=== PATIENT | female | born 1975 | race Caucasian/White ===

== ENCOUNTER 2018-01-31 13:54 | Emergency (ER) | payer BC, OTHER ==
[~2018-01-31] VITALS: Ht 165.1 cm; Wt 104.3 kg
[~2018-01-31 13:54] MED LIST: ALBUTEROL SULF8.5 GM INH; ANASPAZ0.125 MG PO; AYGESTIN5 MG PO; BACTRIM DS TAB1 EACH PO; CLARITIN10 MG PO; CRESTOR20 MG PO; FLOVENT DISKU100 MCG INH; FLUOXETINE HCL40 MG PO; GEMFIBROZIL600 MG PO; GLIPIZIDE XL10 MG PO; IBUPROFEN400 MG PO; JANUVIA100 MG PO; LANTUS100 UNITS/ SUB-Q; LISINOPRIL2.5 MG PO; NORCO 5-325 TA1 EACH PO; OMEPRAZOLE20 MG PO; PERCOCET 5-3251 EACH PO; SINGULAIR10 MG PO; VIVELLE-DOT1 EAC1 TD
[2018-01-31] MEDS ORDERED: HUMULIN 70100 UNIT/3 SUB-Q (14:12)
== END 2018-01-31 17:45 | disposition home or self-care (01) ==
LOC: ED 13:54
DX: R51 Headache (principal); E11.9 Type 2 diabetes mellitus without complications; I10 Essential (primary) hypertension; Z88.0 Allergy status to penicillin; Z91.013 Allergy to seafood; Z88.8 Allergy status to other drugs, medicaments and biological substances; Z79.4 Long term (current) use of insulin; Z79.899 Other long term (current) drug therapy
CPT/HCPCS: 70450; 99284

== ENCOUNTER 2018-09-29 08:51 | Emergency (ER) | payer BC, OTHER ==
[~2018-09-29] VITALS: Ht 165.1 cm; Wt 104.3 kg
[~2018-09-29 08:51] MED LIST changes: +HUMULIN 70100 UNIT/3 SUB-Q
[2018-09-29] MEDS ORDERED: FLUCONAZOLE150 MG PO (09:12)
[2018-09-29] MEDS ORDERED: ESTRADIOL1 EACH TD (09:13)
[2018-09-29] MEDS ORDERED: PREDNISONE20 MG PO (10:46)
== END 2018-09-29 11:13 | disposition home or self-care (01) ==
LOC: ED 08:51
DX: J02.9 Acute pharyngitis, unspecified (principal); K12.2 Cellulitis and abscess of mouth; E11.9 Type 2 diabetes mellitus without complications; J45.909 Unspecified asthma, uncomplicated; I10 Essential (primary) hypertension; Z88.0 Allergy status to penicillin; Z91.013 Allergy to seafood; Z91.048 Other nonmedicinal substance allergy status; Z88.8 Allergy status to other drugs, medicaments and biological substances; Z79.899 Other long term (current) drug therapy; Z79.4 Long term (current) use of insulin
CPT/HCPCS: 99283

== ENCOUNTER 2022-04-30 08:15 | Day surgery (SDC) | payer BC, OTHER ==
[~2022-04-30] VITALS: Ht 165.1 cm; Wt 83.6 kg
[~2022-04-30 08:15] MED LIST changes: +CLIMARA1 EACH TD; +CRESTOR10 MG PO; +ESTRADIOL1 EACH TD; +FLUCONAZOLE150 MG PO; +PREDNISONE20 MG PO; +PROVERA2.5 MG PO; +ROPINIROLE HCL5 MG PO; +ZESTRIL5 MG PO
[2022-04-30] MEDS ORDERED: MULTI VITAMIN1 EACH PO (08:39)
--- NOTE | 2022-04-30 12:11 | NUR ---
04/30/22 1211 Gloria Davison 1201-PATIENT ARRIVED TO PACU ON 6L MASK NONAROUSABLE ORAL AIRWAY IN PLACE RR EVEN. IVF INFUSING. SR. GLUCOSE 102. 1205-PATIENT REACTIVE TO VERBAL STIMULI OPENING EYES ORAL AIRWAY REMOVED. NODS HEAD NO TO PAIN OR NAUSEA. PATIENT GIVES THUMBS UP.PATIENT VERY DROWSY DOZES BACK TO SLEEP. 1210-NO DRAINAGE TO VIRGILIO AREA. VIRGILIO PAD PLACED. DR. MATTHEW AT BEDSIDE TALKING TO PATIENT. PATIENT CLOES EYES. PLACED ON RA RR EVEN 100%
[2022-04-30] MEDS ORDERED: HYDROCODON-ACE1 EA10 PO (12:20)
--- NOTE | 2022-04-30 12:57 | NUR ---
1245: PT BACK TO DS RM 3 VIA STRETCHER FROM PACU WITH EYES OPEN. PT FOLLOWS COMMANDS APPROPRIATELY. RATES PAIN 3/10 "CRAMPY" AND IS EDUCATED ABOUT WHAT TO EXPECT. TOLERATES WATER WITH NO NAUSEA, PROVIDED PUDDING AND CRACKERS. CALL LIGHT WITHIN REACH, ENCOURAGED TO USE WITH ANY NEEDS.
--- NOTE | 2022-04-30 14:01 | NUR ---
1315: PT WAKES WHEN THIS RN ENTERS THE ROOM. DESIRES TO DC. DANGLES AT THE BEDSIDE, LINA WELL. DENIES DIZZINESS AND SOB. DRESSES INDEPENDENTLY 1330: DC INSTRUCTIONS PROVIDED AND DISCUSSED ORDERED. PT DENIES QUESTIONS AND CONCERNS AT THIS TIME. SL REMOVED WITH CATH TIP INTACT AND PRESSURE APPLIED TO SITE, WNL. 1334: WHEELED OFF OF UNIT BY THIS RN. TRANSFERS INTO VEHICLE INDEPENDENTLY AND APPROPRIATELY. NO PHYSICAL S/S OF DISTRESS AT THIS TIME
--- NOTE | 2022-05-02 08:19 | OR ---
[facility] [address] [place], [place] [address] Signed DATE OF OPERATION: 04/30/2022 SURGEON: Amanda Mccullough MD PREOPERATIVE DIAGNOSIS: Postmenopausal bleeding. POSTOPERATIVE DIAGNOSIS: Postmenopausal bleeding, endometrial polyps. ANESTHESIA: MAC. ESTIMATED BLOOD LOSS: Minimal. DRAINS: None. INDICATIONS AND FINDINGS: The patient is a 46-year-old female who has been on hormone replacement treatment for the last 10 years. Her regimen was recently changed and since then she has been having abnormal bleeding. The bleeding can be heavy at times. Endometrial thickness is quite thick. Endometrial biopsy was not successful in the office. At the time of surgery, exam under anesthesia revealed a normal-size uterus. She has no adnexa as these have been previously removed for benign indications. The uterus sounded to 8 cm. On evaluation of the cavity, there were multiple polyps seen. DESCRIPTION OF PROCEDURE: The patient was prepped and draped in the dorsal lithotomy position. A weighted speculum was placed. The anterior lip of the cervix was visualized and grasped with a single-tooth tenaculum. The cavity was sounded to 8 cm. The endocervical canal was then easily dilated to a #8 dilator. MyoSure device was then placed. After evaluation of the cavity, the decision was made to use the MyoSure Lite. This was introduced and the multiple polyps were removed without difficulty. Following this, the tenaculum was removed from the cervix. There was no evidence of any active bleeding. The speculum was removed and the patient was taken to the recovery room in good condition. All sponge and needle counts were correct. Electronically Signed By: AMANDA MCCULLOUGH MD 05/02/22 0819 PATIENT NAME: VIVI BELTRAN OPERATIVE REPORT DATE OF : 75 REPORT #: [id number] PHYSICIAN: AMANDA MCCULLOUGH MD PCP: [facility] REPORT IS CONFIDENTIAL AND NOT TO BE RELEASED WITHOUT AUTHORIZATION [address] [address] Signed Amanda Mccullough MD PJW/MODL /[id number] cc: Fadi Copies: ~ Electronically Signed By: AMANDA MCCULLOUGH MD 05/02/22 0819 PATIENT NAME: VIVI BELTRAN OPERATIVE REPORT DATE OF : 75 REPORT #: [id number] PHYSICIAN: AMANDA MCCULLOUGH MD PCP: [facility] REPORT IS CONFIDENTIAL AND NOT TO BE RELEASED WITHOUT AUTHORIZATION
== END 2022-04-30 13:35 | disposition home or self-care (01) ==
LOC: DS 08:15
PROVIDERS: ATTEND Obstetrics & Gynecology
PROC: 0UB98ZX Excision of Uterus, Via Natural or Artificial Opening Endoscopic, Diagnostic (ICD-10-PCS; principal; 2022-04-30 12:45)
DX: N84.0 Polyp of corpus uteri (principal); N95.0 Postmenopausal bleeding; J45.909 Unspecified asthma, uncomplicated; I10 Essential (primary) hypertension; E11.69 Type 2 diabetes mellitus with other specified complication; K21.9 Gastro-esophageal reflux disease without esophagitis; E66.8 Other obesity; Z68.30 Body mass index [BMI] 30.0-30.9, adult; Z79.3 Long term (current) use of hormonal contraceptives; Z88.0 Allergy status to penicillin; Z88.8 Allergy status to other drugs, medicaments and biological substances; Z91.013 Allergy to seafood
CPT/HCPCS: 00952; J0131; J1100; J1644; J1885; J2001; J2250; J2405; J2704; J2765; J3010; J7121

== ENCOUNTER 2023-04-29 05:53 | Inpatient (IN) | payer BC, OTHER ==
[2023-04-20 15:19] VITALS: BP 112/68
[2023-04-29] VITALS (7 sets, daily range): BP systolic 107–139; BP diastolic 43–81
[~2023-04-29] VITALS: Ht 165.1 cm; Wt 84.1 kg
--- NOTE | ~2023-04-29 | OR ---
[facility] [address], [place] [address] Draft DATE OF OPERATION: 04/29/2023 SURGEON: Amanda Mccullough MD LMFT: Antoinette Cesar MD PREOPERATIVE DIAGNOSES: Uterovaginal prolapse and stress incontinence. POSTOPERATIVE DIAGNOSES: Uterovaginal prolapse and stress incontinence. PROCEDURES: Laparoscopically-assisted vaginal hysterectomy, right salpingectomy, cystocele and rectocele repair, sacrospinous cuff suspension, bilateral sling procedure and cystoscopy. ANESTHESIA: General with spinal. ESTIMATED BLOOD LOSS: 100 mL. DRAINS: Gaytan catheter. PACKS: Vaginal. INDICATIONS AND FINDINGS: The patient is a 47-year-old female, who has been having increasing issues with stress incontinence as well as vaginal pressure and bulging. She has undergone prior bilateral salpingo-oophorectomy for one ovary with a torsion and the other with a dermoid. Her uterus remained and she has had persistent abnormal postmenopausal bleeding despite multiple changes in her regimen. She did not tolerate being off hormones and her last hysteroscopy was suggestive of adenomyosis. Because of this, surgical and evaluation and treatment was recommended. At the time of surgery and at the time of the exam under anesthesia revealed the cervix to present within 2 cm of the introitus. There was a grade 2 cystocele and a grade 2 rectocele. On laparoscopy, the uterus and cervix PATIENT NAME: VIVI BELTRAN OPERATIVE REPORT DATE OF : 75 REPORT #: [id number] PHYSICIAN: AMANDA MCCULLOUGH MD PCP: [facility] REPORT IS CONFIDENTIAL AND NOT TO BE RELEASED WITHOUT AUTHORIZATION [facility] [address], [place] [address] Draft appeared normal. There was remaining right tube, which was excised. Both ovaries were previously removed. DESCRIPTION OF PROCEDURE: The patient was prepped and draped in the dorsal lithotomy position. A weighted speculum was placed. The anterior lip of the cervix was visualized and grasped with a single-tooth tenaculum. The cavity was then sounded and the endocervical canal was dilated. The VCare cannula was inserted and the balloon inflated at the fundus. The tenaculum and speculum removed and the cup was fitted over the cervix and a locking cap fitted into place. Attention was then directed above. The infraumbilical area was injected with 0.5% Marcaine plain. An incision was made with a knife and each layer serially elevated, incised until the fascia was eventually identified and entered. The patient was quite deep. Stay sutures of 0 Vicryl were placed. The peritoneum was opened bluntly and a Geo cannula was placed. This was replaced by the bariatric Geo given the depth of the abdominal wall. The abdomen was then inflated with carbon dioxide gas. The abdomen was appropriately distended and secondary ports were placed. These were placed lateral and slightly below the level of the umbilicus. Each of these areas was transilluminated, injected with the Marcaine, incision made with a knife and the trocars placed under direct vision. The left-sided port was a 5 mm port. The right was intended to be a Veress needle with the expanding port, but there were technical difficulties and this was replaced with another 5 mm port. The LigaSure [place] device was then used to serially coagulate the round ligament on the patient's left side. This allowed the anterior leaf of the peritoneum to be further incised creating a partial bladder flap. The peritoneum was taken down posteriorly as well. The uterine vessels were skeletonized and coagulated multiple times and divided. Attention was directed to the patient's right side and the tube was serially coagulated and divided along the mesosalpinx. The round ligament was coagulated and divided. The anterior leaf of the peritoneum was then incised completing the bladder flap. The peritoneum was taken down posteriorly as well. The uterine vessels were then skeletonized and coagulated multiple times and divided. Further dissection was done both posteriorly and anteriorly, and the cup could easily be palpated at that time. The eSNF device was used to separate the specimen from the vaginal cuff. The specimen was retrieved vaginally and the vagina was packed with a glove with a wet lap to allow the pneumoperitoneum to reaccumulate. The abdomen was then was re-explored and there was some mild bleeding near the right uterine vessels. This was coagulated using the LigaSure device. Following this, there was good hemostasis noted. The instruments removed from the abdomen after allowing as much CO2 as possible to escape. The fascial incision at the umbilicus was re-identified and closed with a running suture of 0 Vicryl. The skin incisions were closed with subcuticular sutures of 3-0 Vicryl repeat. Attention was directed down below and the vaginal pack was removed. The cuff angles were identified with long Allis and the cuff itself was closed in a running locking stitch of 0 Vicryl. The cystocele repair was then begun. The midline was identified with Allis clamps. A knife was used to PATIENT NAME: VIVI BELTRAN OPERATIVE REPORT DATE OF : 75 REPORT #: [id number] PHYSICIAN: AMANDA MCCULLOUGH MD PCP: [facility] REPORT IS CONFIDENTIAL AND NOT TO BE RELEASED WITHOUT AUTHORIZATION [facility] [address], [place] [address] Draft superficially score the vaginal mucosa. The vaginal mucosa was from the underlying tissue with a combination of blunt and sharp dissection. This was carried out far laterally as well, especially the more distal areas for placement of the sling. The pubovesical fascia was reapproximated with interrupted sutures of 0 Vicryl repairing the cystocele itself. The sling was then placed. The obturator notches were identified and incision was made with a knife. The trocars were then placed. These were placed at the lowest most medial point of the obturator notch and placed behind the pubic rami and into the apex of the vaginal incision on each side. After placement of the trocars, cystoscopy was done. The Gaytan catheter was removed and the bladder evaluated. There was no evidence of any injury to the bladder and no incursion of the trocars. There was immediate spill of fluorescein stained urine out of both of the ureters. The bladder was then drained and the Gaytan catheter replaced. The sling was attached to the trocars and was placed in the midurethral area with appropriate tension. The covering was cut and the excess cut at the skin. The vaginal mucosa was then trimmed and the vaginal mucosa was then closed with a running suture of 2-0 Vicryl. Following this, attention was directed posteriorly. A triangle of tissue was removed from the perineal body. The vaginal mucosa was then in the midline using the Metzenbaum scissors. This was carried to the apex of the vagina. The vaginal mucosa was from the underlying tissue with a combination of blunt and sharp dissection. This was also carried out superiorly and laterally to the ischial spines. At this point, Capio device was used to deploy 0 braided suture into each of the sacrospinous ligaments. These were placed slightly medial to the spine on each side. These were then sutured to the ends of the vaginal cuff. These were tied down with good elevation of the vaginal cuff. The rectocele repair was then done with interrupted sutures of 0 Vicryl. This was more of a mask repair rather than site-specific, as there was no fascial-type tissue identified. Following the reduction of the rectocele, rectal examination was done, which confirmed there were no sutures within the rectal lumen. The vaginal mucosa was then trimmed. FloSeal was injected around each of the sacrospinous ligaments to further aid in hemostasis. The vaginal mucosa was closed in a Y-type manner as there was a Y at the very top apex of the vagina. This was closed with a running suture of 2-0 Vicryl. The remaining incision was closed with a running suture of 2-0 Vicryl as well. The perineal body was reapproximated with interrupted sutures of 0 Vicryl. The perineum itself was closed superficially with subcuticular sutures of 2-0 Vicryl. The vaginal canal had good length and caliber. Good hemostasis was noted. It was packed with Premarin-coated gauze. The skin incisions for the obturator sling were closed with interrupted sutures of 3-0 Vicryl repeat. All sponge and needle counts were correct. She tolerated the procedure well and was taken to the recovery room in good condition. Amanda Mccullough MD PATIENT NAME: VIVI BELTRAN OPERATIVE REPORT DATE OF : 75 REPORT #: [id number] PHYSICIAN: AMANDA MCCULLOUGH MD PCP: [facility] REPORT IS CONFIDENTIAL AND NOT TO BE RELEASED WITHOUT AUTHORIZATION [address] [place], [place] [address] Draft [facility] /[id number] Copies: ~ PATIENT NAME: VIVI BELTRAN OPERATIVE REPORT DATE OF : 75 REPORT #: [id number] PHYSICIAN: AMANDA MCCULLOUGH MD PCP: [facility] REPORT IS CONFIDENTIAL AND NOT TO BE RELEASED WITHOUT AUTHORIZATION
--- OUTSIDE RECORDS SUMMARY | ~2023-04-29 | XMS | Continuity of Care Document ---
Demographics + + + | Address | [address] [facility] | | | [place] [address] | + + + | Preferred Language | Unknown | + + + | Marital Status | Polygamous | + + + | Amish Affiliation | Unknown | + + + | Race | or | + + + | Ethnic Group | Not or | + + + Author + + + | Author | [facility] | + + + | Organization | [facility] | + + + | Address | [address] [facility] | | | [place] [address] | + + + | Phone | | + + + Care Team Providers + + + + | Care Director Of Guidance Name | Role | Phone | + + + + Unavailable | Unavailable | + + + + Unavailable | Unavailable | + + + + Unavailable | Unavailable | + + + + Unavailable | Unavailable | + + + + Allergies and Intolerances + + + + + + | date | description | facility | reaction | severity | + + + + + + | (no date) | Bupropion | [facility] | (no reaction) | (no severity) | [facility] | | | + + + + + + | (no date) | Urticaria | [facility] | (no reaction) | (no severity) | | | [facility] | | | + + + + + + | (no date) | Abdominal pain | [facility] | (no reaction) | (no severity) | | | [facility] | | | + + + + + + | (no date) | Mild | [facility] | (no reaction) | (no severity) | | | [facility] | | | + + + + + + | (no date) | Anaphylaxis | [facility] | (no reaction) | (no severity) | | | [facility] | | | + + + + + + | (no date) | Itching | [facility] | (no reaction) | (no severity) | | | [facility] | | | + + + + + + | (no date) | Nausea alone | [facility] | (no reaction) | (no severity) | | | [facility] | | | + + + + + + | (no date) | Bupropion | [facility] | (no reaction) | (no severity) | | | [facility] | | | + + + + + + | (no date) | Progesterone | [facility] | (no reaction) | (no severity) | | | [facility] | | | + + + + + + | (no date) | Iodine | [facility] | (no reaction) | (no severity) | | | [facility] | | | + + + + + + | (no date) | Metformin | [facility] | (no reaction) | (no severity) | | | [facility] | | | + + + + + + | (no date) | Penicillin | [facility] | (no reaction) | (no severity) | | | [facility] | | | + + + + + + | (no date) | | [facility] | (no reaction) | (no severity) | | | Povidone-iodine | [facility] | | | + + + + + + | (no date) | | [facility] | (no reaction) | (no severity) | | | Povidone-iodine | [facility] | | | + + + + + + | (no date) | Progesterone | [facility] | (no reaction) | (no severity) | | | [facility] | | | + + + + + + | (no date) | Metformin | [facility] | (no reaction) | (no severity) | | | [facility] | | | + + + + + + | (no date) | Iodine | [facility] | (no reaction) | (no severity) | | | [facility] | | | + + + + + + | (no date) | NSAIDS | [facility] | (no reaction) | (no severity) | | | (Non-Steroidal | | | | | | Anti-Inflamma | | | | + + + + + + | (no date) | Penicillins | [facility] | (no reaction) | (no severity) | + + + + + + | (no date) | Shellfish | [facility] | (no reaction) | (no severity) | + + + + + + | (no date) | iodine | [facility] | (no reaction) | (no severity) | + + + + + + | (no date) | progesterone | [facility] | (no reaction) | (no severity) | + + + + + + | (no date) | | [facility] | (no reaction) | (no severity) | | | povidone-iodine | | | | | | | | | | + + + + + + | (no date) | metformin | [facility] | (no reaction) | (no severity) | + + + + + + | (no date) | bupropion | [facility] | (no reaction) | (no severity) | + + + + + + | (no date) | Penicillin | [facility] | (no reaction) | (no severity) | | | [facility] | | | + + + + + + Encounters No information. Functional Status No information. Immunizations No information. Medications + + + + | date | description | facility | + + + + | 2022-05-07 00:00 | MEDROXYPROGESTERONE | [facility] | | | ACETATE | | + + + + | 2022-05-07 00:00 | LISINOPRIL | [facility] | + + + + | 2022-05-07 00:00 | HYOSCYAMINE SULFATE | [facility] | + + + + | 2015-03-08 00:00 | OXYCODONE | [facility] | | | HCL/ACETAMINOPHEN | | + + + + | 2022-05-07 00:00 | ALBUTEROL SULFATE | [facility] | + + + + | 2022-05-07 00:00 | MONTELUKAST SODIUM | [facility] | + + + + | 2022-05-07 00:00 | IBUPROFEN | [facility] | + + + + | 2022-05-07 00:00 | OMEPRAZOLE | [facility] | + + + + | 2022-05-07 00:00 | LORATADINE | [facility] | + + + + | 2022-05-07 00:00 | ESTRADIOL | [facility] | + + + + | 2022-05-07 00:00 | INSULIN GLARGINE | [facility] | + + + + | 2022-05-07 00:00 | ESTRADIOL | [facility] | + + + + | 2022-05-07 00:00 | GEMFIBROZIL | [facility] | + + + + | 2022-05-07 00:00 | LISINOPRIL | [facility] | + + + + | 2022-05-07 00:00 | ROPINIROLE HCL | [facility] | + + + + | 2022-05-07 00:00 | FLUOXETINE HCL | [facility] | + + + + | 2022-05-07 00:00 | GLIPIZIDE | [facility] | + + + + | 2022-05-07 00:00 | SITAGLIPTIN PHOSPHATE | [facility] | + + + + | 2022-05-07 00:00 | | [facility] | | | SULFAMETHOXAZOLE/TRIMETHOPR | | | | IM DS | | + + + + | 2022-05-07 00:00 | HYDROCODONE | [facility] | | | BIT/ACETAMINOPHEN | | + + + + | 2016-10-10 00:00 | HYDROCODONE | [facility] | | | BIT/ACETAMINOPHEN | | + + + + | 2022-05-07 00:00 | HYDROCODONE | [facility] | | | BIT/ACETAMINOPHEN | | + + + + | 2022-05-07 00:00 | ROSUVASTATIN CALCIUM | [facility] | + + + + | 2022-05-07 00:00 | ROSUVASTATIN CALCIUM | [facility] | + + + + | 2022-05-07 00:00 | FLUTICASONE PROPIONATE | [facility] | + + + + Problems + + + + | date | description | facility | + + + + | 2015-03-08 00:00 | Sprain of right foot | [facility] | + + + + | 2016-10-10 00:00 | Abscess of right genital | [facility] | | | labia | | + + + + | 2018-02-01 00:00 | Headache | [facility] | + + + + | 2021-03-20 06:06:15 | Morbid (severe) obesity | [facility] | | | due to excess calories | [facility] | + + + + | 2023-03-03 09:25 | ENCNTR SCREEN MAMMOGRAM | [facility] | | | FOR MALIGNANT NE | | + + + + | 2023-03-03 09:25 | ENCNTR SCREEN MAMMOGRAM | [facility] | | | FOR MALIGNANT NEOPLASM OF | | | | BREAST | | + + + + | 2023-04-20 14:57 | STRESS INCONTINENCE | [facility] | | | (FEMALE) (MALE) | | + + + + | 2023-04-20 14:57 | UTEROVAGINAL PROLAPSE, | [facility] | | | UNSPECIFIED | | + + + + | 2023-04-29 07:30 | STRESS INCONTINENCE | [facility] | | | (FEMALE) (MALE) | | + + + + | 2023-04-29 07:30 | CYSTOCELE, MIDLINE | [facility] | + + + + | 2023-04-29 07:30 | RECTOCELE | [facility] | + + + + | 2023-04-29 07:30 | POSTMENOPAUSAL BLEEDING | [facility] | + + + + Procedures + + + + | date | description | facility | + + + + | 2022-04-30 00:00 | EXCISION OF UTERUS, ENDO, | [facility] | | | DIAGN | | + + + + | 2022-04-30 00:00 | HYSTEROSCOPY BIOPSY | [facility] | + + + + Results/Labs +--------+--------+ +---------+--------+---------+ | test | date | facility | value | unit | notes | +--------+--------+ +---------+--------+---------+ + + | Result panel 1 | + + + + + +-------+ + + | | 2022-04-22 | [facility] | 6.4 | (missing) | (missing) | | (unavailable | 15:45 | [facility] | | | | + + + +-------+ + + + + | Result panel 2 | + + + + + +--------+ + + | | 2022-04-22 | [facility] | 49.8 | (missing) | (missing) | | (unavailable | 15:45 | [facility] | | | | + + + +--------+ + + + + | Result panel 3 | + + + + + +--------+ + + | | 2022-04-22 | [facility] | 40.2 | (missing) | (missing) | | (unavailable | 15:45 [facility] | | | | + + + +--------+ + + + + | Result panel 4 | + + + + + +-------+ + + | | 2022-04-22 | [facility] | 7.2 | (missing) | (missing) | | (unavailable | 15:45 [facility] | | | | + + + +-------+ + + + + | Result panel 5 | + + + + + +-------+ + + | | 2022-04-22 | [facility] | 2.2 | (missing) | (missing) | | (unavailable | 15:45 [facility] | | | | + + + +-------+ + + + + | Result panel 6 | + + + + + +-------+ + + | | 2022-04-22 | [facility] | 0.6 | (missing) | (missing) | | (unavailable | 15:45 [facility] | | | | + + + +-------+ + + + + | Result panel 7 | + + + + + +------+---------+ + | | 2022-04-22 | [facility] | 92 | mg/dL | (missing) | | (unavailable | 15:45 | [facility] | | | | + + + +------+---------+ + + + | Result panel 8 | + + + + + +------+---------+ + | | 2022-04-22 | [facility] | 10 | mg/dL | (missing) | | (unavailable | 15:45 [facility] | | | | + + + +------+---------+ + + + | Result panel 9 | + + + + + +--------+---------+ + | | 2022-04-22 | [facility] | 0.56 | mg/dL | (missing) | | (unavailable | 15:45 [facility] | | | | + + + +--------+---------+ + + + | Result panel 10 | + + + + + +-------+ + + | | 2022-04-22 | [facility] | 114 | (missing) | (missing) | | (unavailable | 15:45 [facility] | | | | + + + +-------+ + + + + | Result panel 11 | + + + + + +---------+ + + | | 2022-04-22 | [facility] | 17.85 | (missing) | (missing) | | (unavailable | 15:45 [facility] | | | | + + + +---------+ + + + + | Result panel 12 | + + + + + +--------+ + + | | 2022-04-22 | [facility] | 4.10 | (missing) | (missing) | | (unavailable | 15:45 [facility] | | | | + + + +--------+ + + + + | Result panel 13 | + + + + + +-------+ + + | | 2022-04-22 | [facility] | 139 | (missing) | (missing) | | (unavailable | 15:45 [facility] | | | | + + + +-------+ + + + + | Result panel 14 | + + + + + +-------+ + + | | 2022-04-22 | [facility] | 3.9 | (missing) | (missing) | | (unavailable | 15:45 [facility] | | | | + + + +-------+ + + + + | Result panel 15 | + + + + + +-------+ + + | | 2022-04-22 | [facility] | 104 | (missing) | (missing) | | (unavailable | 15:45 [facility] | | | | + + + +-------+ + + + + | Result panel 16 | + + + + + +------+ + + | | 2022-04-22 | [facility] | 29 | (missing) | (missing) | | (unavailable | 15:45 [facility] | | | | + + + +------+ + + + + | Result panel 17 | + + + + + +-------+ + + | | 2022-04-22 | [facility] | 9.9 | (missing) | (missing) | | (unavailable | 15:45 [facility] | | | | + + + +-------+ + + + + | Result panel 18 | + + + + + +-------+---------+ + | | 2022-04-22 | [facility] | 8.7 | mg/dL | (missing) | | (unavailable | 15:45 [facility] | | | | + + + +-------+---------+ + + + | Result panel 19 | + + + + + +-------+ + + | | 2022-04-22 | [facility] | 7.0 | (missing) | (missing) | | (unavailable | 15:45 [facility] | | | | + + + +-------+ + + + + | Result panel 20 | + + + + + +-------+ + + | | 2022-04-22 | [facility] | 3.8 | (missing) | (missing) | | (unavailable | 15:45 [facility] | | | | + + + +-------+ + + + + | Result panel 21 | + + + + + +-------+ + + | | 2022-04-22 | [facility] | 3.2 | (missing) | (missing) | | (unavailable | 15:45 [facility] | | | | + + + +-------+ + + + + | Result panel 22 | + + + + + +--------+ + + | | 2022-04-22 | [facility] | 1.19 | (missing) | (missing) | | (unavailable | 15:45 [facility] | | | | + + + +--------+ + + + + | Result panel 23 | + + + + + +--------+ + + | | 2022-04-22 | [facility] | 13.2 | (missing) | (missing) | | (unavailable | 15:45 [facility] | | | | + + + +--------+ + + + + | Result panel 24 | + + + + + +-------+ + + | | 2022-04-22 | [facility] | 0.3 | (missing) | (missing) | | (unavailable | 15:45 [facility] | | | | + + + +-------+ + + + + | Result panel 25 | + + + + + +------+ + + | | 2022-04-22 | [facility] | 24 | (missing) | (missing) | | (unavailable | 15:45 [facility] | | | | + + + +------+ + + + + | Result panel 26 | + + + + + +------+ + + | | 2022-04-22 | [facility] | 54 | (missing) | (missing) | | (unavailable | 15:45 [facility] | | | | + + + +------+ + + + + | Result panel 27 | + + + + + +-------+ + + | | 2022-04-22 | [facility] | 170 | (missing) | (missing) | | (unavailable | 15:45 [facility] | | | + + + +-------+ + + + + | Result panel 28 | + + + + + +--------+ + + | | 2022-04-22 | [facility] | 37.9 | (missing) | (missing) | | (unavailable | 15:45 [facility] | | | | + + + +--------+ + + + + | Result panel 29 | + + + + + +--------+ + + | | 2022-04-22 | [facility] | 92.5 | (missing) | (missing) | | (unavailable | 15:45 [facility] | | | | + + + +--------+ + + + + | Result panel 30 | + + + + + +--------+ + + | | 2022-04-22 | [facility] | 32.2 | (missing) | (missing) | | (unavailable | 15:45 [facility] | | | | + + + +--------+ + + + + | Result panel 31 | + + + + + +--------+ + + | | 2022-04-22 | [facility] | 34.8 | (missing) | (missing) | | (unavailable | 15:45 [facility] | | | | + + + +--------+ + + + + | Result panel 32 | + + + + + +--------+ + + | | 2022-04-22 | [facility] | 12.8 | (missing) | (missing) | | (unavailable | 15:45 [facility] | | | | + + + +--------+ + + + + | Result panel 33 | + + + + + +-------+ + + | | 2022-04-22 | [facility] | 274 | (missing) | (missing) | | (unavailable | 15:45 [facility] | | | + + + +-------+ + + + + | Result panel 34 | + + + + + + + + + | | 2022-04-22 | [facility] | NEGATIVE | (missing) | (missing) | | (unavailable | 15:54 | [facility] | | | | + + + + + + + + + | Result panel 35 | + + + + + +-------+ + + | | 2022-04-30 | [facility] | 102 | (missing) | (missing) | | (unavailable | 12:04 | [facility] | | | | + + + +-------+ + + Social History No information. Vital Signs + + + +---------+ | date | measurement | value | units | + + + +---------+ | 2022-04-22 00:00 | BMI | 30.7 | kg/m2 | + + + +---------+ | 2022-04-22 00:00 | height_metric | 165.1 | cm | + + + +---------+ | 2022-04-22 00:00 | height_standard | 65 | in | + + + +---------+ | 2022-04-22 00:00 | weight_metric | 83.63 | kg | + + + +---------+ | 2022-04-22 00:00 | weight_standard | 184.37 | lb | + + + +---------+ | 2022-04-30 00:00 | BP_diastolic | 59 | mmHg | + + + +---------+ | 2022-04-30 00:00 | BP_systolic | 116 | mmHg | + + + +---------+ | 2022-04-30 00:00 | heart_rate | 49 | /min | + + + +---------+ | 2022-04-30 00:00 | o2_saturation | 97 | % | + + + +---------+ | 2022-04-30 00:00 | respiration_rate | 16 | /min | + + + +---------+ | 2022-04-30 00:00 | temperature_metric | 36.61 | C | | | | | | + + + +---------+ | 2022-04-30 00:00 | | 97.9 | F | | | temperature_standar | | | | | d | | | + + + +---------+"
[~2023-04-29 05:53] MED LIST changes: +HYDROCODON-ACE1 EA10 PO; +MULTI VITAMIN1 EACH PO; +OZEMPIC2 MG/0.75 SQ
--- NOTE | 2023-04-29 11:30 | NUR ---
04/29/23 1130 Gloria Davison 1120-PATIENT ARRIVED TO PACU ON 6L MASK RR EVEN. PATIENT REACTIVE TO VERBAL STIMULI OPENING EYES NODS HEAD NO TO PAIN OR NAUSEA. PATIENT ABLE TO WIGGLE TOES. DRESSINGS TO ABDOMEN CDI. SMALL AMT OF DRAINAGE ON VIRGILIO PAD. ONOFRE CATHETER DRAINING BRIGHT YELLOW URINE. SR. IVF INFUSING. PATIENT CLOSES EYES. 1125-GLUCOSE CHECKED 84
--- NOTE | 2023-04-29 12:05 | NUR ---
PT ARRIVES TO FLOOR IN HOSPITAL BED ACCOMPANIED BY KERRIE Oconnell RN. BEDSIDE REPORT RECEIVED. VITALS COMPLETE. ASSESSMENT COMPLETE. LUNG SOUNDS CLEAR. BOWEL TONES HYPOACTIVE. LOWER ABD LAP SITES X3 WITH BANDAIDS IN PLACE C/D/I. VIRGILIO PAD IN PLACE WITH SMALL AMOUNT OF DRAINAGE NOTED. PT REPORTING PAIN 2/10 AND STATES "IT IS LIKE MENSTURAL CRAMPS." PT DENIES ANY PRN PAIN MEDICATIONS AT THIS TIME WHEN OFFERED. PT A&O TO ALL. IV FLUSHES WNL. CPOX IN PLACE. SCDs IN PLACE. PT REQUESTING ICE WATER. WILL RETURN WITH ICE WATER. PT DENIES ANY OTHER NEEDS AT THIS TIME. CALL LIGHT IN REACH.
--- NOTE | 2023-04-29 13:29 | NUR ---
WATER PROVIDED. PT REPORTING "ITCHY FEELING ON FACE, ARMS AND LEGS." PROVIDED PT BATH WIPES. ASSISTED PT WITH WIPING DOWN SKIN. PRN BENADRYL ADMINISTERED, SEE MAR. VITALS COMPLETE. PT DENIES ANY OTHER NEEDS AT THIS TIME. CALL LIGHT IN REACH. BED ALARM ON.
--- NOTE | 2023-04-29 15:04 | NUR ---
PT ADMITTED SOME ANXIETY. EXERCISED MINISTRY OF PRESENCE PT TALKED THROUGH WORRIES. REASSURED PT. PRAYED FOR SUCCESSFUL PROCEDURE AND AWARENESS OF DIVINE PRESENCE.
--- NOTE | 2023-04-29 15:07 | NUR ---
SPOKE TO PATIENT ABOUT THE DISCHARGE PLAN. PATIENT PLANS TO GO HOME WHEN DISCHARGED. PATIENT DOES NOT USE DME. PATIENT CAN DO HER OWN ADLS. PATIENT CAN DRIVE NEEDED. PATIENT CAN AFFORD HOUSING AND FOOD. PATIENT HAS FRIENDS AND FAMILY THAT CAN HELP NEEDED. PATIENT DOES NOT HAVE ANY DISCHARGE NEEDS AT THIS TIME. REMINDED PATIENT TO NOTIFY THE ORDER PACKER OR PACKAGER IF THINGS CHANGE.
--- NOTE | 2023-04-29 15:10 | NUR ---
IN TO ROUND ON PT. VITALS COMPLETE. PT REPORTING PAIN 4/10 IN VAGINAL AREA. PRN PAIN MEDICATION ADMINISTERED, SEE MAR. PT DENIES ANY OTHER NEEDS AT THIS TIME. CALL LIGHT IN REACH.
--- NOTE | 2023-04-29 15:56 | NUR ---
IN WITH BEATRICE BESS. PT REQUESTING TOILETING. 2PA WITH FWW AND GAIT BELT. PT STANDS FROM RECLINER AND PIVOTS TO BSC. PT INSTRUCTED TO USE CALL LIGHT WHEN DONE WITH BSC. PT VERBALIZES UNDERSTANDING. CALL LIGHT IN REACH.
--- NOTE | 2023-04-29 17:09 | NUR ---
IN TO ROUND ON PT. DR. MATTHEW IN ROOM. PT REPORTING PAIN 11/21. PT DENIES PRN PAIN MEDICATION WHEN OFFERED. PT REQUESTING ICE CHIPS. ICE CHIPS PROVIDED. PT DENIES ANY OTHER NEEDS AT THIS TIME. CALL LIGHT IN REACH.
--- NOTE | 2023-04-29 18:05 | NUR ---
IN TO ROUND ON PT. PT REPORTING PAIN 10/24. PT REQUESTING SOMETHING FOR PAIN. MADE PLAN WITH PT TO SIT ON EDGE OF BED. PT AGREEABLE. PT REQUESTING WATER, WATER PROVIDED. PT DENIES ANY OTHER NEEDS AT THIS TIME. CALL LIGHT IN REACH.
--- NOTE | 2023-04-29 18:39 | NUR ---
IN WITH BEATRICE BOYD. VITALS AND I&Os COMPLETE. PT DENIES PAIN AT THIS TIME. THIS RN AND BEATRICE BOYD ASSIST PT TO SITTING POSITION ON EDGE OF BED. PT REPORTS "DULL PAIN" /. PT STANDS AT EDGE OF BED WITH 2PA. PT SITS BACK IN BED. VIRGILIO-PAD NOTED TO HAVE SMALL AMOUNT OF SANGUINEOUS DRAINAGE NOTED. NEW VIRGILIO-PAD PLACED. PT IN BED. PT REQUESTING JELLO. JELLO PROVIDED. PT DENIES ANY OTHER NEEDS AT THIS TIME. CALL LIGHT IN REACH. SIGNIFICANT OTHER IN ROOM.
--- NOTE | 2023-04-29 19:37 | NUR ---
REPORT RECIEVED FROM MOON AKINS. pt RESTING IN BED AWAKE, DROWSY. DENIES PAIN. ONOFRE DRAINING. AT BEDSIDE. IVF INFUSING WNL. ICE WATER REFILLED AND IN REACH.
--- NOTE | 2023-04-29 21:03 | NUR ---
PT CALLED, NEW IV BAG NOW INFUSING. VS AND I/O COMPLETED. FRESH ICE WATER GIVEN.
--- NOTE | 2023-04-29 21:25 | NUR ---
pt RESTING IN BED FLAT, RATES PAIN 2/10 AT REST, 3.5/10 WITH MOVEMENT. PRN OXYCODONE ADMINSITERED. PO SNACK PROVIDED. ASSESSMENT COMPLETE. VIRGILIO CARE COMPLETE, ONOFRE CARE COMPLETE. MINIMAL SANGUINOUS DRAINAGE. NEW PAD AND CHUX IN PLACED, SMALL SPOTS OF BLOOD ON WHITE CHUX. IV FLUSHED WNL, IVF INFUSING ORDERED. SCDS ON. CALL LIGHT IN REACH.
--- NOTE | 2023-04-29 23:10 | NUR ---
ROUNDED ON pt. RESTING IN BED WITH EYES CLOSED, BREATHING UNLABORED. SPO2 WNL ON RA, CPOX ON. IVF INFUSING WNL. LIGHTS OFF IN ROOM.
[2023-04-30 02:26] VITALS: BP 126/62
--- NOTE | 2023-04-30 02:38 | NUR ---
IN ROOM FOR VS, pt RATES PAIN 4/10, DESCRIBES "PRESSURE" IN VIRGILIO AREA. PRN PAIN MEDICATION ADMINISTERED. PO SNACK PROVIDED WITH MEDICATION. VSS. INCISIONS CDI. NO DRAINAGE NOTED ON VIRGILIO PAD. NEW ICE PACK PROVIDED. ONOFRE EMPTIED. pt HAS CALL LIGHT IN REACH. NO ADDITIONAL REQUESTS.
--- NOTE | 2023-04-30 03:50 | NUR ---
Went to asses pt as Pulse ox machine beeping. Pt was sating at 85 % on Room air. Notified production support developer, placed pt on 2 L NC. Sats back up to 95%. Will update primary RN.
--- NOTE | 2023-04-30 04:35 | NUR ---
CALL LIGHT ANSWERED. pt DRY HEAVING, EMESIS BAG PROVIDED. PRN ANTIEMETIC ADMINISTERED. NEW BAG IVF INFUSING WNL. ONOFRE EMPTIED. CALL LIGHT WITHIN REACH. pt ALLOWED TO REST AT THIS TIME. NO EMESIS NOTED.
[2023-04-30 05:20] VITALS: BP 127/66
--- NOTE | 2023-04-30 05:24 | NUR ---
ELA TEACHER IN ROOM. CBG 150 AT THIS TIME. pt RATES PAIN /10. SCHEDULED TYLENOL ADMINISTERED. pt DENIES NAUSEA AT THIS TIME. TITRATED TO RA, SPO2 WNL. CPOX ON. IVF INFUSING WNL. ICE WATER REFILLED. CALL LIGHT IN REACH.
[2023-04-30 05:53] LABS: HEMATOCRIT 32.1 % (35.0-50.0); HEMOGLOBIN 10.9 g/dL (12.0-18.0); MCH 32.5 (27-36); MCHC 34.1 g/dl (30-36); MCV 95.5 fl (81-99); RBC 3.36 M/ul (4.3-5.7); RDW 12.6 (10.5-15.0)
[2023-04-30 06:00] LABS: ANION GAP 12.1 (7-21); BUN/CREATININE RATIO 12.06 (6.0-28.6); CALCIUM 8.3 mg/dL (8.5-10.1); CREATININE, SERUM 0.58 mg/dL (0.55-1.02); POTASSIUM 4.1 mmol/L (3.5-5.1)
--- NOTE | 2023-04-30 06:36 | NUR ---
JEMIMA D/C'D AT THIS TIME WNL. pt RESTING IN BED. DENIES NEED FOR PRN PAIN MEDICATION. pt STATES "I FEEL A LITTLE NAUSEOUS AGAIN". DENIES NEED FOR ANTIEMETIC. EDUCATED ON POST VOID RESIDUALS. IVF INFUSING WNL. CALL LIGHT IN REACH.
--- NOTE | 2023-04-30 07:10 | NUR ---
REPORT RECEIVED FROM MONO PAUL. PT RESTING IN BED WITH EYES CLOSED. RR EVEN AND UNLABORED. PT ON RA WITH O2 SATS AT 90%. NO NEEDS IDENTIFIED AT THIS TIME. CALL LIGHT IN REACH.
[2023-04-30 08:26] VITALS: BP 122/53
--- NOTE | 2023-04-30 08:31 | NUR ---
Pharmacy called and req verifivation of allergy to nsaids. per pt due to her RNY (gastric bypass sx) she was told not to take nsaids and it is not an allergy. per pt dr. chaves was okay w nsaids for short period of time. charge authorizer and pharmacy notified.
--- NOTE | 2023-04-30 08:39 | NUR ---
IN TO ADMINISTER MEDICATION, SEE NOV. PT TAKES PO MEDICAITONS WITH NO ISSUES. VITALS AND I&Os COMPLETE. ASSESSMENT COMPLETE. PT REPORTING PAIN 2/10 IN VAGINAL AREA. SCHEDULED TORADOL ADMINISTERED, SEE NOV. LUNG SOUNDS CLEAR. BOWEL TONES ACTIVE. ABD TENDER WITH PALPATION. LAP SITES X3 TO LOWER ABD COVERED WITH BANDAID. SCANT AMOUNT OF DRAINAGE NOTED TO ALL 3 LAP SITES. VIRGILIO-PAD IN PLACE SMALL AMOUNT OF BLOOD NOTED TO VIRGILIO-PAD. BREAKFAST TRAY PLACED OVER PT SO PT CAN EAT BREAKFAST. PT DENIES ANY OTHER NEEDS AT THIS TIME. CALL LIGHT IN REACH.
[2023-04-30] MEDS ORDERED: ESTRADIOL1 EAC1 TD (08:42)
[2023-04-30] MEDS ORDERED: ROPINIROLE HCL0.5 MG PO (08:44)
[2023-04-30] MEDS ORDERED: OZEMPIC0.25 MG/01 SUB-Q (08:44)
--- NOTE | 2023-04-30 09:56 | NUR ---
IN TO ROUND ON PT. PT UP IN BED AND REPORTS PAIN IS "BETTER." PT REPORTING PAIN 09/23. PT DENIES NAUSEA AT THIS TIME. OFFERED TO REMOVE BREAKFAST TRAY, PT REQUESTING TO KEEP IT. LEFT TRAY WITH PT AT THIS TIME. PT DENIES ANY OTHER NEEDS AT THIS TIME. CALL LIGHT IN REACH.
--- NOTE | 2023-04-30 11:01 | NUR ---
PATIENT UP TO BSC WITH SBA. PATIENT TOLERATED WELL, NO N/D. 400ML VOID WITH 8ML RESIDUAL SCANNED. PATIENT BACK IN BED AT THIS TIME, SCDS ON AND CALL LIGHT IN EASY REACH. PLAN TO AMBULATE TO ROY NEXT TIME OUT OF BED. RN AWARE. NO OTHER NEEDS.
--- NOTE | 2023-04-30 11:50 | NUR ---
THIS RN AND BEATRICE BESS IN TO AMBULATE PT. PT REPORTING TOILETING NEEDS. SBA WITH FWW FROM BED TO RESTROOM. PT HAS SLOW STEADY GAIT. NEW PER-PAD PLACED ALLONG WITH MESH UNDERWEAR. VOID NOTED. PT AMBULATES X1 LAP AROUND MED/SURG FLOOR WITH FWW AND SBA. PT HAS SLOW STEADY GAIT. PT BACK IN BED. BEATRICE MARRERO IN ROOM ASSISTING PT. NO NEEDS FROM THIS RN AT THIS TIME.
--- NOTE | 2023-04-30 12:20 | NUR ---
THIS RN TALKED TO DR. MATTHEW DR. MATTHEW CALLED WANTING AN UPDATE. NO NEW ORDERS AT THIS TIME.
--- NOTE | 2023-04-30 13:10 | NUR ---
PT IN BED. STATED HAD BEEN A ROUGH NIGHT BUT WAS FEELING BETTER. STILL SLEEPY. CONSENTED TO PRAYER. PRAYED FOR ONGOING HEALING AND ABIDING PEACE. SHORT VISIT.
[2023-04-30 14:08] VITALS: BP 121/63
--- NOTE | 2023-04-30 14:13 | NUR ---
IN TO ADMINSITER MEDICAITON, SEE MAR. PT TAKES PO MEDICATIONS WITH NO ISSUES. BEATRICE MARRERO IN ROOM TO ASSIST WITH VITALS. VITALS AND I&Os COMPLETE. ASSESSMENT COMPLETE. LUNG SOUNDS CLEAR. BOWEL TONES ACTIVE. PT REPORTING PAIN 3/10 "POSTERIOR, WHERE THE STITCHES ARE." SCHEDULED MEDICATION ADMINISTERED, SEE MAR. 3 LOWER ABD LAP SITES COVERED WITH BANDAIDS UNCHANGED FROM PREVIOUS ASSESSMENT. VIRGILIO-PAD NOTED TO HAVE SMALL AMOUNT OF BLOOD. PT DENIES ANY OTHER NEEDS AT THIS TIME. CALL LIGHT IN REACH.
--- NOTE | 2023-04-30 14:50 | NUR ---
IN TO ROUND ON PT. PT LAYING IN BED AND RESPONDS WHEN ADDRESSED. AKSED PT TO WALK. PT AGREEABLE. PT AMBULATES 1 LAP AROUND FLOOR WITH FWW. PT REPORTING TOILETING NEEDS. PT AMBULATED TO RESTROOM. VOID NOTED. PT REQUESTING TO AMBULATE ANOTHER LAP. PT AMBULATED WITH FWW X1 LAP AGAIN AROUND FLOOR. BEATRICE SWANSON IN TO DO POST VOID RESIDUALS. PT DENIES ANY NEEDS FROM THIS RN AT THIS TIME. CALL LIGHT IN REACH.
--- NOTE | 2023-04-30 16:18 | NUR ---
MED REC COMPLETE
--- NOTE | 2023-04-30 17:05 | NUR ---
IN TO ROUND ON PT. PT REPORTING PAIN 09/23. OFFERED TO AMBULATE WITH PT AND PT STATES "NOT RIGHT NOW." PT REQUESTING ICE WATER, ICE WATER PROVIDED. PT DENIES ANY OTHER NEEDS AT THIS TIME. CALL LIGHT IN REACH. SIGNIFICANT OTHER IN ROOM.
--- NOTE | 2023-04-30 17:20 | NUR ---
THIS RN IN WITH DR. MATTHEW. PT AMBULATES TO RESTROOM WITH FWW. POST RESIDUAL SCAN PERFORMED AND NOTED TO HAVE 266ML RESIDUAL POST VOID. DR. MATTHEW TO PLACE NEW ORDERS TO DC FLUIDS. FLUIDS DC'D. PT REQUESTING TO AMBULATE EOLA. PT AMBULATES EOLA WITH FWW AND ACCOMPANIED BY SIGNIFICANT OTHER. PT DENIES ANY NEEDS FROM THIS RN AT THIS TIME.
[2023-04-30 18:34] VITALS: BP 107/50
--- NOTE | 2023-04-30 18:40 | NUR ---
IN TO ROUND ON PT. PT REPORTING PAIN 10/24. PT DENIES PRN PAIN MEDICATION WHEN OFFERED. OFFERED TOILETING PT STATES "I PROBABLY SHOULD, I DON'T FEEL LIKE I NEED TO THOUGH." PT AMBULATES WITH FWW FROM BED TO RESTROOM. VOID NOTED. POST VOID RESIDUAL OF 121 NOTED. PT BACK IN BED. PT DENIES ANY OTHER NEEDS AT THIS TIME. CALL LIGHT IN REACH. SIGNIFICANT OTHER IN ROOM.
--- NOTE | 2023-04-30 19:49 | NUR ---
RECEIVED REPORT FROM DAY SHIFT RN. PATIENT IS RESTING IN BED. PATIENT DENIES ANY PAIN. PATIENT DENIES ANY NEEDS. CALL LIGHT IN REACH.
--- NOTE | 2023-04-30 20:17 | NUR ---
PATIENT IS RESTING IN BED. SCHEDULED MEDICATION GIVEN PER ORDER. PATIENT DENIES ANY FURTHER NEEDS. CALL LIGHT IN REACH.
[2023-04-30 21:12] VITALS: BP 123/61
--- NOTE | 2023-04-30 21:55 | NUR ---
PATIENTS VITALS TAKEN AND RECORDED. PATIENTS ASSESMENT COMPLETED. PATIENT RATES PAIN AT A 3/10, SCHEDULED MEDICATION GIVEN PER ORDER. PATIENT DENIES THE NEED FOR ADDITIONAL PAIN MEDICATION. PM MEDICATIONS GIVEN PER ORDER. PATIENT DENIES ANY NAUSEA. PATIENT UP TO BR AND ABLE TO VOID. POST VOID RESIDUAL SCAN COMPLETED AND RECORDED. PATIENT AMBULATED X3 LAPS IN THE HALLWAY. PATIENT IS NOW IN BED RESTING EATING A SANDWICH. PATIENTS IV FLUSHED AND SL PER ORDER. PATIENT IS AAOX4. PATIENT DENIES ANY FURTHER NEEDS. CALL LIGHT IN REACH.
--- NOTE | 2023-04-30 22:00 | NUR ---
PATIENT IS RESTING IN BED EATING. PATIENT DENIES ANY PAIN OR NAUSEA. PATIENT DENIES ANY NEEDS. CALL LIGHT IN REACH.
--- NOTE | 2023-05-01 00:56 | NUR ---
PATIENT IS RESTING IN BED WITH EYES CLSOED, RR 16. CALL LIGHT IN REACH.
--- NOTE | 2023-05-01 01:35 | NUR ---
[facility] PATIENT ABLE TO VOID. PATIENT POST VOID RESIDUAL SCAN COMPLETED. PATIENT IS BACK IN BED RESTING. PATIENT RATES PAIN AT A 2/10 AND DENIES THE NEED FOR INTERVENTION AT THIS TIME. SCHEDULED MEDS GIVEN PER ORDER. PATIENT DENIES ANY FURTHER NEEDS. CALL LIGHT IN REACH.
--- NOTE | 2023-05-01 02:43 | NUR ---
PATIENT IS RESTING IN BED WITH EYES CLSOED, RR15. CALL LIGHT IN REACH.
--- NOTE | 2023-05-01 04:11 | NUR ---
PATIENT IS RESTING IN BED WITH EYES CLSOED, RR 15. CALL LIGHT IN REACH.
[2023-05-01 05:36] VITALS: BP 130/62
--- NOTE | 2023-05-01 06:30 | NUR ---
PATIENT UB TO BR A SBA. PATIENT ABLE TO VOID. PATIENTS POST VOID RESIDUAL COMPLETED. PATIENTS VITALS TAKEN AND RECORDED. INTAKE AND OUTPUT RECORDED. PATIENT RATES PAIN AT A 4/10, SCHEDULED PAIN MEDICATION GIVEN PER ORDER. PATIENT DENIES ANY NAUSEA. PATIENT HAD A SMALL AMOUNT OF BLOOD NOTED ON DELMA PAD. PATIENT DENIES ANY FURTHER NEEDS. CALL LIGHT IN REACH.
--- NOTE | 2023-05-01 07:05 | NUR ---
DR. MATTHEW HERE VISITING WITH PATIENT.
--- NOTE | 2023-05-01 10:02 | NUR ---
EXERCISED MINISTRY OF PRESENCE PT TALKED OF LOOKING FORWARD TO GOING HOME AND ONGOING HEALING. SHORT VISIT PT WAS STILL WORKING ON BREAKFAST.
--- NOTE | 2023-05-01 12:53 | PATH ---
[facility] [address] [place], [place] [address] Signed SPECIMEN(S): A UTERUS, CERVIX, RIGHT FALLOPIAN TUBE SPECIMEN SOURCE: A. UTERUS, CERVIX, RIGHT FALLOPIAN TUBE CLINICAL HISTORY: Postmenopausal bleeding, incomplete uterovaginal prolapse, cystocele/rectocele FINAL PATHOLOGIC DIAGNOSIS: Uterus, cervix, right fallopian tube: - Benign endocervix and ectocervix with reactive features and acute and chronic inflammation. - Proliferative endometrium, negative for hyperplasia or atypia. - Benign right fallopian tube. VR:[facility] MICROSCOPIC EXAMINATION: Histologic sections of all submitted blocks are examined by light microscopy. These findings, together with the gross examination, support the pathologic diagnosis. GROSS DESCRIPTION: The specimen, labeled and designated "Dior Ugalde" and designated on the requisition "cervix, uterus, right fallopian tube," is received in formalin and consists of a uterus (trimmed weight: 57 g, 5.7 cm superior-inferior, 4.5 cm cornu to cornu, 3.0 cm anterior to posterior), attached cervix (2.5 cm in length by 3.0 cm in diameter) with pink-donnelly smooth ectocervical mucosa and patent slit-shaped os, and attached right fimbriated fallopian tube segment (5.9 cm in length and ranging in diameter from 0.7 to 1.0 cm). The fallopian tube is sectioned to reveal donnelly-pink to red-brown soft cut surfaces. The uterine serosa is pink-donnelly and smooth. The cervix is sectioned to reveal a pink-donnelly herringbone endocervical mucosa (endocervical canal: 2.0 cm in length by 0.8 cm in diameter). Sectioning of the uterus reveals an endometrial cavity (4.0 cm superior-inferior by 1.7 cm cornu to cornu) with donnelly-pink to red-brown endometrial lining that measures up to 0.1 centimeters in thickness. The myometrium (1.8 cm in greatest thickness) is pink-donnelly and trabeculated with no masses or lesions grossly identified. Business Ethics Professor sections are submitted. Cassette Summary: PATIENT NAME: VIVI UGALDE PATHOLOGY DATE OF : 75 REPORT #: [id number] PHYSICIAN: ONEIL BEAULIEU PCP: [facility] REPORT IS CONFIDENTIAL AND NOT TO BE RELEASED WITHOUT AUTHORIZATION [facility] [address] [place], [place] [address] Signed (A1) fallopian tube (A2) cervix (A3) endomyometrium AC (under the direct supervision of a pathologist) The Gross Description was prepared using a voice recognition system. The report was reviewed for accuracy; however, sound-alike word errors, addition and/or deletions may occur. If there is any question about this report, please contact Client Services. PERFORMING LABORATORY: Technical component was performed by [facility], [address] [place] [id number] (CLIA# [id number]). Professional interpretation was performed by [facility], [address] [place] [address], [place] [address] (CLIA#: [id number]). Diagnostician: Ray Coleman MD Pathologist Electronically Signed 05/01/2023 Copies: ~ PATIENT NAME: VIVI UGALDE PATHOLOGY DATE OF : 75 REPORT #: [id number] PHYSICIAN: ONEIL PATHOLOGY [facility] REPORT IS CONFIDENTIAL AND NOT TO BE RELEASED WITHOUT AUTHORIZATION
[2023-05-01 13:55] VITALS: BP 112/53
--- NOTE | 2023-05-01 14:42 | NUR ---
PATIENT HAS WALKED SEVERAL TIMES TODAY, TOLERATING WELL. PT ENCOURAGED TO TRY TO VOID EVERY HOUR. LAST VOID WAS 150ML WITH A POST VOID OF 183. PATIENT REPORTS PAIN IS TOLERABLE AT THIS TIME. PATIENT REPORTS SHE WILL CONTINUE TO WALK AND VOID HOURLY. NO CURRENT NEEDS. PERSONAL SUPPLIES AND CALL LIGHT WITHIN REACH.
--- NOTE | 2023-05-01 15:44 | NUR ---
REPORT RECEIVED FROM MOON UPTON. THIS RN ASSUMING CARE OF PT. PT UP TO AMBULATE IN ROY X 3 LAPS AND BACK TO ROOM,NOW RESTING IN BED. PT DENIES PAIN AND NAUSEA. PT REPORTS SHE IS NOW ON A Q1 HOUR BLADDER SCHEDULE AND HER NEXT PLANNED TIME TO VOID IS 1610. ABDOMEN WNL WITH BANDAIDS IN PLACE OVER LAPAROSCOPIC SITES X3. NO DRAINAGE PRESENT. BOWEL TONES ACTIVE. ABDOMEN SOFT. PT DENIES ADDITIONAL REQUESTS OR COMPLAINTS AT THIS TIME. CALL LIGHT WITHIN REACH. BED RAILS UP.
--- NOTE | 2023-05-01 16:50 | NUR ---
DR MATTHEW TO BEDSIDE AND STATES PT IS READY FOR DISCHARGE. PT UP TO VOID. VOIDS 150ML. VIRGILIO CARE PER PT. PT DRESSES SELF, STEADY ON FEET. PT DRESSED AND PACING IN ROOM WHEN THIS RN ARRIVES. IV DC'D PER PROTOCOL. GAUZE AND COBAN APPLIED. PT REPORTS ALL HER QUESTIONS WERE ANSWERED BY DR MATTHEW. DISCHRAGE INSTRUCTIONS REVEWED WITH PT. PT VERBALIZES UNDERSTANDING OF INSTRUCTIONS, MEDICATION, AND FOLLOW UP. PT AWAITING HER RIDE HOME AND VISIT FROM PHARMACIST. STATES SHE WILL CALL WHEN READY. NO ADDITIONAL REQUESTS OR CONCERNS. CALL LIGHT WITHIN REACH.
[2023-05-01] MEDS ORDERED: KONDREMUL2.5 ML/5 M PO (16:53)
[2023-05-01] MEDS ORDERED: MECLIZINE HCL25 MG PO (16:53)
[2023-05-01] MEDS ORDERED: SENOKOT-S TABL1 EACH PO (16:55)
[2023-05-01] MEDS ORDERED: REGLAN10 MG PO (16:56)
[2023-05-01] MEDS ORDERED: TYLENOL EXTRA500 MG PO (16:56)
[2023-05-01] MEDS ORDERED: OXYCODONE HCL5 MG PO (16:57)
[2023-05-01] MEDS ORDERED: ALEVE220 MG PO (16:57)
[2023-05-01 17:22] VITALS: BP 107/41
--- NOTE | 2023-05-01 17:45 | NUR ---
PTS RIDE ARRIVED. PT FINISHED TALKING WITH PHARMACIST AND FINISHED EATING DINNER. BELONGINGS PACKED. PT CONFIRMS THAT EVERYTHING IS ACCOUNTED FOR. PT WHEELED FROM MED SURG. NO ADDITIONAL REQUESTS OR CONCERNS.
== END 2023-05-01 17:40 | disposition home or self-care (01) | DRG 743 ==
LOC: DS 05:53 → OPS 05:53 → DS 07:30 → OPS 07:30 → MS 12:05 → OPS 12:06 → MS 05-01 17:40
PROVIDERS: ADMIT Obstetrics & Gynecology; ATTEND Obstetrics & Gynecology
PROC: 0USG4ZZ Reposition Vagina, Percutaneous Endoscopic Approach (ICD-10-PCS; 2023-04-29)
PROC: 0JQC0ZZ Repair Pelvic Region Subcutaneous Tissue and Fascia, Open Approach (ICD-10-PCS; 2023-04-29)
PROC: 0TSD4ZZ Reposition Urethra, Percutaneous Endoscopic Approach (ICD-10-PCS; 2023-04-29)
PROC: 0TJB8ZZ Inspection of Bladder, Via Natural or Artificial Opening Endoscopic (ICD-10-PCS; 2023-04-29)
PROC: 0UT9FZZ Resection of Uterus, Via Natural or Artificial Opening With Percutaneous Endoscopic Assistance (ICD-10-PCS; principal; 2023-04-29 07:30)
PROC: 0UB57ZZ Excision of Right Fallopian Tube, Via Natural or Artificial Opening (ICD-10-PCS; 2023-04-29 07:30)
PROC: 0JQC0ZZ Repair Pelvic Region Subcutaneous Tissue and Fascia, Open Approach (ICD-10-PCS; 2023-04-29 07:30)
DX: N81.2 Incomplete uterovaginal prolapse (principal); N39.3 Stress incontinence (female) (male); N95.0 Postmenopausal bleeding; E11.9 Type 2 diabetes mellitus without complications; H52.221 Regular astigmatism, right eye; H40.019 Open angle with borderline findings, low risk, unspecified eye; D50.9 Iron deficiency anemia, unspecified; G47.33 Obstructive sleep apnea (adult) (pediatric); Z98.84 Bariatric surgery status; Z98.51 Tubal ligation status; Z88.0 Allergy status to penicillin; Z91.013 Allergy to seafood; Z88.8 Allergy status to other drugs, medicaments and biological substances; Z91.041 Radiographic dye allergy status; Z90.722 Acquired absence of ovaries, bilateral; Z79.890 Hormone replacement therapy; Z79.899 Other long term (current) drug therapy; Z98.890 Other specified postprocedural states; Z90.721 Acquired absence of ovaries, unilateral
CPT/HCPCS: 00944; 36415; 80048; 85027; A9270; C1771; C2631; J0131; J0690; J1170; J1200; J1644; J1885; J2250; J2274; J2405; J2704; J2765; J3010; J7121